=== PATIENT | male | born 1945 | race Caucasian/White ===

== ENCOUNTER → 2018-06-08 | Outpatient (CLI) | payer MEDICARE ==
--- NOTE | 2018-06-08 08:52 | RAD ---
Chest radiograph 06/08/2018 9:00 AM INDICATION: Elevated d-dimer COMPARISON: None available TECHNIQUE: Frontal and lateral views of the chest are provided. FINDINGS: The cardiomediastinal silhouette is within normal limits. There are no pleural effusions. There is no pulmonary vascular congestion. There is no pneumothorax. The lungs are clear. Calcified right hilar lymphadenopathy is identified. There is suggestion of a 7 mm nodular opacity in the right upper lobe projecting over the anterior right third rib. No significant osseous abnormality is identified. IMPRESSION: No acute cardiopulmonary process. There is suggestion of a 7 mm nodular opacity in the right upper lobe. Further evaluation with chest CT may be of benefit. Electronically signed by: Umu Spears MD (06/08/2018 8:49 AM) [id number]
--- NOTE | 2018-06-08 10:37 | RAD ---
Ventilation/perfusion lung scan, 06/08/2018: HISTORY: Shortness of breath, elevated d-dimer The ventilation study was performed utilizing 10 mCi of xenon-133. Activity in the lungs is heterogeneous. There is minimal retention of activity in the lower lungs on the washout phase. Perfusion imaging was performed utilizing 6.5 mCi of technetium 99m MAA. A similar mildly heterogeneous pattern of activity is present in both lungs. No significant unmatched or segmental perfusion defects are seen. IMPRESSION: The probability of pulmonary emboli is considered to be low. Electronically signed by: Keith Oconnell MD (06/08/2018 10:34 AM) [facility]
== END | disposition home or self-care (01) ==
LOC: NM 08:03
PROVIDERS: ATTEND Internal Medicine
DX: R59.0 Localized enlarged lymph nodes (principal); R79.89 Other specified abnormal findings of blood chemistry
CPT/HCPCS: 71046; 78582; 96374; A9540; A9558

== ENCOUNTER → 2019-05-11 | Outpatient (CLI) | payer MEDICARE ==
[2018-11-25 07:20] VITALS: BP 136/64
[2019-05-11 16:54] LABS: HEMATOCRIT 40.8 % (39.0-53.0); HEMOGLOBIN 13.9 g/dL (13.0-17.5)
[2019-05-11 16:58] LABS: BILIRUBIN,URINE NEGATIVE (NEG); CLARITY,URINE CLEAR; COLOR,URINE YELLOW; NITRITE,URINE NEGATIVE (NEG); PROTEIN,URINE NEGATIVE (NEG-TRACE); UROBILINOGEN,URINE 0.2 mg/dL (0.2 mg/dL)
[2019-05-11 17:02] LABS: CREATININE,RANDOM URINE 23.1 mg/dL (Not Establ.)
[2019-05-11 17:12] LABS: ALBUMIN 3.9 g/dL (3.4-5.0); CALCIUM 10.4 mg/dL (8.5-10.1); CREATININE 1.6 mg/dL (0.7-1.3); GFR 42.8; PHOSPHORUS 2.7 mg/dL (2.6-4.7); POTASSIUM 4.2 mmol/L (3.5-5.1)
[2019-05-11 17:21] LABS: BACTERIA,URINE 0 /HPF (0-FEW); HYALINE CASTS, URINE OCCASIONAL /HPF; RBC,URINE OCC /HPF (0-2); SQUAMOUS EPITHELIAL CELL,UR FEW /LPF; WBC,URINE 0 /HPF (0-4)
[2019-05-12 04:08] LABS: CREAT RD UR 24.3 mg/dL (Not Estab.); MICROALB RD UR 3.9 ug/mL (Not Estab.)
== END | disposition home or self-care (01) ==
LOC: LAB 16:34
PROVIDERS: ATTEND Nurse Practitioner Adult Health
DX: I12.9 Hypertensive chronic kidney disease with stage 1 through stage 4 chronic kidney disease, or unspecified chronic kidney disease (principal); N18.3 Chronic kidney disease, stage 3 (moderate); E66.2 Morbid (severe) obesity with alveolar hypoventilation; K50.90 Crohn's disease, unspecified, without complications; Z68.36 Body mass index [BMI] 36.0-36.9, adult
CPT/HCPCS: 36415; 80069; 81001; 82043; 82570; 84156; 85014; 85018